=== PATIENT | male | born 1960 | race Caucasian/White ===

== ENCOUNTER 2017-03-07 15:38 | Emergency (ER) | payer MEDICARE ==
[2017-03-07 16:11] LABS: BASOPHILS 0.2 % (0-2); EOSINOPHILS 1.3 % (0-7); HEMATOCRIT 39.4 % (42.0-54.0); HEMOGLOBIN 13.4 g/dL (13.5-17.5); IMMATURE GRANULOCYTES 0.2 % (0-5); LYMPHOCYTES 20.1 % (15-50); MCH 30.9 pg (26.0-34.0); MCV 90.8 fL (80.0-100.0); MEAN PLATELET VOLUME 9.4 fL (7.4-10.4); MONOCYTES 5.2 % (2-11); PLATELET COUNT 267 10x3/uL (130-400); RBC 4.34 10x6/uL (4.20-6.10); RDW 13.7 % (11.5-14.5); WBC 10.5 10x3/uL (4.8-10.8)
[2017-03-07 16:32] LABS: ALBUMIN 3.6 g/dL (3.4-5.0); ALKALINE PHOSPHATASE 78 U/L (46-116); ALT (SGPT) 26 U/L (10-68); BILIRUBIN - TOTAL 0.29 mg/dL (0.2-1.3); CALC OSMOLALITY 275 mosm/kg (275-300); CALCIUM 8.8 mg/dL (8.5-10.1); CARBON DIOXIDE 26.9 mmol/L (21.0-32.0); CHLORIDE - SERUM 102 mmol/L (98-107); CREATININE - SERUM 1.3 mg/dL (0.6-1.3); GLUCOSE 110 mg/dL (74-106); POTASSIUM - SERUM 4.1 mmol/L (3.5-5.1); SODIUM 137 mmol/L (136-145); UREA NITROGEN 16 mg/dL (7-18); eGFR NON AFRICAN AMERICAN 61 mL/min (90-120)
[2017-03-07 16:44] LABS: CKMB 0.2 U/L (0.0-3.6); CREATINE KINASE 87 UL (21-232)
[2017-03-07 16:45] LABS: TROPONIN-I < 0.017 ng/mL (0.000-0.060)
== END 2017-03-07 18:30 | disposition left against medical advice (07) ==
LOC: D.ER 15:38
PROVIDERS: Emergency Medicine
DX: R07.9 Chest pain, unspecified (principal)